=== PATIENT | male | born 1980 | race Hispanic/Latino ===

== ENCOUNTER 2025-01-11 19:17 | Emergency (ER) | payer SELFPAY ==
[2025-01-11 20:04] LABS: #Basophils 0.04 10x3/uL (0.0-0.2); #Eosinophils 0.13 10x3/uL (0.0-0.7); #Monocytes 0.48 10x3/uL (0.11-0.59); #Neutrophils 5.29 10x3/uL (1.40-6.50); %Basophils 0.4 % (0.0-1.0); %Eosinophils 1.3 % (0.0-10.0); %Lymphocytes 39.5 % (21.0-51.0); %Monocytes 4.9 % (0.0-10.0); %Neutrophils 53.7 % (42.0-75.0); Hematocrit 47.5 % (42.0-52.0); Hemoglobin 15.7 g/dL (14.0-18.0); Mean Corpuscular Hemoglobin 29.7 pg (27.0-31.0); Mean Corpuscular Volume 90.0 fL (78.0-98.0); Platelet Count 213 10x3/uL (130-400); Red Blood Cell (RBC) Count 5.28 mill/uL (4.70-6.10); White Blood Cell (WBC) Count 9.85 10x3/uL (4.8-10.8)
[2025-01-11 20:18] LABS: ALT (SGPT) 20 U/L (Less than 45); AST (SGOT) 24 U/L (11-34); Albumin 4.2 g/dL (3.1-4.5); Alkaline Phosphatase 55 U/L (40-110); Anion Gap 14 mmol/L (10-20); BUN (Urea Nitrogen) 8 mg/dL (8.9-20.6); Bilirubin, Total 0.3 mg/dL (0.3-1.2); Calc. Creatinine Clearance 0 mL/min (70-130); Calcium 8.9 mg/dL (7.8-10.44); Carbon Dioxide 25 mmol/L (22-29); Chloride 108 mmol/L (98-107); Globulin 3.1 g/dL (2.4-3.5); Glucose 99 mg/dL (70-105); Potassium 3.1 mmol/L (3.5-5.1); Sodium 144 mmol/L (136-145)
== END 2025-01-11 21:17 | disposition home or self-care (01) ==
LOC: ERS 19:17
DX: R07.89 Other chest pain (principal); E87.6 Hypokalemia
CPT/HCPCS: 71045; 80053; 84484; 85025; 93005